=== PATIENT | female | born 1980 | race Caucasian/White ===

== ENCOUNTER 2016-07-11 07:07 | Emergency (ER) | payer OTHER ==
[2016-07-11 07:17] VITALS: BP 120/69
--- NOTE | 2016-07-12 17:51 | UC ---
jennifer Beaver Timothy, scribed for Emi Lin MD on 07/11/16 at 0728 . Epistaxis Nasal HPI - HPI Summary HPI Summary: Felisha Bullard is a 36 yo female presenting to [facility] with 2/10 sinus pressure and dull ache since 07/08/16. She states she got new glasses, and noticed the bridge of her nose starting to hurt, and swelling and getting red. Yesterday she was tired with increasing redness and swelling. Pt states she had a cold a few weeks ago, and believes she now has a sinus infection. She denies fever, chills , N/V, but does c/o extreme fatigue. Pt is also late for menses and is requesting a test, and has had unprotected sexual encounters. She is a former smoker, and had a cholecystectomy, and has polycystic ovary syndrome. - History of Current Complaint Stated Complaint: SINUS ISSUE Time Seen by Provider: 07/11/16 07:23 Hx Obtained From: Patient Hx Last Menstrual Period: 07/07/16 Onset/Duration: Gradual Onset, Lasting Days, Still Present Timing: Constant Severity Initially: Moderate Severity Currently: Moderate Pain Intensity: 2 Pain Scale Used: 0-10 Numeric Aggravating Factor(s): Nothing Associated Signs And Symptoms: Positive: Sinus Pain Similar Episode/Dx as:: sinusitis - Allergies/Home Medications Allergies/Adverse Reactions: Allergies Allergy/AdvReac Type Severity Reaction Status Date / Time No Known Allergies Allergy Verified 07/11/16 07:18 Home Medications: Home Medications Valacyclovir HCl [Valtrex] 500 mg PO 07/11/16 [History] PMH/Surg Hx/FS Hx/Imm Hx Previously Healthy: No - polycystic ovary syndrome Cancer History Of: Denies: Breast Cancer - Surgical History Surgical History: Yes Surgery Procedure, Year, and Place: cholecystectomy; tonsils; wisdom teeth - Family History Known Family History: Positive: Cardiac Disease - possible in grandmother, attributed to lifestyle factors, Diabetes - Social History Alcohol Use: Weekly Substance Use Type: None Smoking Status (MU): Former Smoker Have You Smoked in the Last Year: No When Did the Patient Quit Smoking/Using Tobacco: 8 yrs ago - Immunization History Most Recent Influenza Vaccination: Jan 2014 Review of Systems Constitutional: Fatigue Skin: Negative Eyes: Negative ENT: Other - sinus pain/pressure Respiratory: Negative Cardiovascular: Negative Gastrointestinal: Negative Genitourinary: Negative Motor: Negative Neurovascular: Negative Musculoskeletal: Negative Neurological: Negative Psychological: Negative All Other Systems Reviewed And Are Negative: Yes Physical Exam Triage Information Reviewed: Yes Appearance: No Pain Distress, Well-Nourished, Ill-Appearing Vital Signs: Initial Vital Signs Temp 99.2 F 07/11/16 07:11 Pulse 52 07/11/16 07:11 Resp 18 07/11/16 07:11 BP 120/69 07/11/16 07:11 Pulse Ox 99 07/11/16 07:11 Vital Signs Reviewed: Yes Eyes: Positive: Conjunctiva Clear ENT: Positive: Hearing grossly normal, Pharynx normal, TMs normal, Other: - sinus tenderness, diffuse nasal redness. Negative: Tonsillar swelling, Tonsillar exudate, Muffled/hoarse voice Neck: Positive: Supple, Nontender Respiratory: Positive: Chest non-tender, Lungs clear, Normal breath sounds, No respiratory distress Cardiovascular: Positive: RRR, No Murmur, Pulses Normal Musculoskeletal: Positive: Strength Intact, ROM Intact Neurological: Positive: Alert, Muscle Tone Normal Psychological Exam: Normal Skin Exam: Normal Epistaxis Nasal Course/Dx - Course Course Of Treatment: Felisha Bullard is a 36 yo female presenting to [facility] with sinus pain and pressure since 07/08/16, also requesting a test. Her test showed negative results. After clinical examination, she will be discharged home with sinusitis and appropriate instructions. - Differential Dx/Diagnosis Differential Diagnosis/HQI/PQRI: Allergic Rhinitis, Sinusitis, Other - URI Provider Diagnoses: acute sinusitis Discharge - Discharge Plan Condition: Stable Disposition: HOME Prescriptions: Amoxicillin/Clavulanate TAB* [Augmentin TAB 875*] 875 mg PO BID #20 tab Patient Education Materials: Sinusitis (ED) Referrals: Fred Renee MD [Primary Care Provider] - 2 Days Additional Instructions: Please follow up with your primary care physician regarding your visit to urgent care today. Return to urgent care with any new or recurring symptoms. The documentation as recorded by the jennifer vitale Timothy accurately reflects the service I personally performed and the decisions made by , Emi Lin MD.
== END 2016-07-11 07:50 | disposition home or self-care (01) ==
LOC: UCEAST 07:07
DX: J01.90 Acute sinusitis, unspecified (principal); Z32.02 Encounter for pregnancy test, result negative; Z90.49 Acquired absence of other specified parts of digestive tract; Z87.891 Personal history of nicotine dependence
CPT/HCPCS: 81025; 99212; G0463